=== PATIENT | male | born 1995 | race Caucasian/White ===

== ENCOUNTER 2017-01-17 20:11 | Emergency (ER) | payer MEDICAID, OTHER ==
[~2017-01-17] VITALS: Ht 177.8 cm; Wt 99.0 kg
[2017-01-17 20:40] VITALS: BP 146/88; PULSE 119; RESP 16; TEMP 99; O2SAT 99
--- NOTE | 2017-01-17 20:40 | PD ---
HPI Chief Complaint: Psychiatric Symptoms Time Seen by Provider: 20:37 Travel History International Travel<30 days: No Contact w/Intl Traveler<30days: No History of Present Illness HPI 21-year-old male presents to the emergency Department under Ambriz act by local police. The patient states he got a fight with his girlfriend earlier today. He was working on his trailer when he fell through the floor and got abrasions to his bilateral forearms. He states that his girlfriend got worried that he was going to hurt himself after their fight so she called police. He adamantly denies any suicidal or homicidal ideation. He admits to drinking one beer today. He also states he smokes marijuana and tobacco. He denies any other drug use. Patient denies having any chronic medical problems or take any prescribed medications. He states his tetanus immunization is not up-to-date. Patient denies any medical complaints at this time. PFSH Past Medical History ADHD: Yes Diminished Hearing: No Immunizations Current: Yes Past Surgical History Other Surgery: Yes (SKULL LACERATION AGE 12, SKIN CYST LEFT CLAVICULAR AREA) Social History Alcohol Use: Yes Tobacco Use: Yes (PPD) Substance Use: Yes Allergies-Medications (Allergen,Severity, Reaction): Coded Allergies: No Known Allergies (Verified , 04/11/14) Reported Meds & Prescriptions Reported Meds & Active Scripts Active No Active Prescriptions or Reported Medications Review of Systems Except as stated in HPI: all other systems reviewed are Neg Physical Exam Narrative GENERAL: Well-developed well-nourished male patient, afebrile. SKIN: Warm and dry. Patient has superficial abrasions noted to bilateral forearms. HEAD: Normocephalic. Atraumatic. EYES: No scleral icterus. No injection or drainage. NECK: Supple, trachea midline. No JVD or lymphadenopathy. CARDIOVASCULAR: Regular rate and rhythm without murmurs, gallops, or rubs. RESPIRATORY: Breath sounds equal bilaterally. No accessory muscle use. Lungs sounds are clear to auscultation. GASTROINTESTINAL: Abdomen soft, non-tender, nondistended. MUSCULOSKELETAL: No cyanosis, or edema. BACK: Nontender without obvious deformity. No CVA tenderness. PSYCHIATRIC: No delusional thought processes. No hallucinations. Data Data Last Documented VS Vital Signs Date Time Temp Pulse Resp B/P Pulse Ox O2 Delivery O2 Flow Rate FiO2 2/28/17 21:10 107 20 01/17/17 21:05 98.8 130/79 97 Orders Tetanus/Diphtheria Tox Adult (Tetanus/Di (01/17/17 20:45) Complete Blood Count With Diff (01/17/17 20:36) Comprehensive Metabolic Panel (01/17/17 20:36) Psych Screen (01/17/17 20:36) Drug Screen, Random Urine (01/17/17 20:36) Alcohol (Ethanol) (01/17/17 20:36) Labs Laboratory Tests Test 01/17/17 01/17/17 20:40 20:45 White Blood Count 8.8 TH/MM3 Red Blood Count 5.40 MIL/MM3 Hemoglobin 17.0 GM/DL Hematocrit 48.4 % Mean Corpuscular Volume 89.5 FL Mean Corpuscular Hemoglobin 31.5 PG Mean Corpuscular Hemoglobin 35.2 % Concent Red Cell Distribution Width 13.9 % Platelet Count 248 TH/MM3 Mean Platelet Volume 9.0 FL Neutrophils (%) (Auto) 60.9 % Lymphocytes (%) (Auto) 28.8 % Monocytes (%) (Auto) 8.8 % Eosinophils (%) (Auto) 1.2 % Basophils (%) (Auto) 0.3 % Neutrophils # (Auto) 5.4 TH/MM3 Lymphocytes # (Auto) 2.5 TH/MM3 Monocytes # (Auto) 0.8 TH/MM3 Eosinophils # (Auto) 0.1 TH/MM3 Basophils # (Auto) 0.0 TH/MM3 CBC Comment DIFF FINAL Differential Comment Sodium Level 137 MEQ/L Potassium Level 3.2 MEQ/L Chloride Level 103 MEQ/L Carbon Dioxide Level 21.9 MEQ/L Anion Gap 12 MEQ/L Blood Urea Nitrogen 13 MG/DL Creatinine 1.12 MG/DL Estimat Glomerular Filtration 83 ML/MIN Rate Random Glucose 128 MG/DL Calcium Level 8.7 MG/DL Total Bilirubin 0.9 MG/DL Aspartate Amino Transf 21 U/L (AST/SGOT) Alanine Aminotransferase 37 U/L (ALT/SGPT) Alkaline Phosphatase 84 U/L Total Protein 8.3 GM/DL Albumin 4.8 GM/DL Ethyl Alcohol Level 109 MG/DL Urine Opiates Screen NEG Urine Barbiturates Screen NEG Urine Amphetamines Screen NEG Urine Benzodiazepines Screen POS Urine Cocaine Screen NEG Urine Cannabinoids Screen POS MDM Medical Decision Making Medical Screen Exam Complete: Yes Emergency Medical Condition: Yes Medical Record Reviewed: Yes Differential Diagnosis Depression versus anxiety versus substance abuse versus bipolar disorder Narrative Course 21-year-old male presents to the emergency Department under Ambriz act by local police. He denies any current suicidal or homicidal ideations. CBC, CMP, alcohol level, urine drug screen are ordered and pending. Tetanus immunization is updated. CBC shows no acute abnormality. CMP shows hypokalemia at 3.2. Alcohol level is 109. UDS is positive for benzodiazepines and cannabinoids. Patient is given 40 meq potassium by mouth. Patient is medical cleared for psychiatric screening and disposition. Mental health screening discussed with the patient. Psychiatric screen ordered. Diagnosis Primary Impression: Anxiety Additional Impression: Abrasion forearm Additional Instructions: Patient is medically cleared for psychiatric screening and disposition. Scripts No Active Prescriptions or Reported Meds Condition: Lulu Vang Jan 17, 2017 20:40
[2017-01-17] MEDS ORDERED: TETANUS/DIPHTHERIA TOXOID ADULT 0.5 ML VIAL IM ONE (20:45)
[2017-01-17 21:05] VITALS: BP 130/79; PULSE 107; RESP 20; TEMP 98.8; O2SAT 97
[2017-01-17 21:24] LABS: AUTOMATED NEUTROPHIL # 5.4 TH/MM3 (1.8-7.7); BASOPHIL % 0.3 % (0.0-2.0); EOSINOPHIL # 0.1 TH/MM3 (0-0.4); EOSINOPHIL % 1.2 % (0.0-4.0); HEMATOCRIT 48.4 % (39.0-51.0); HEMO FLAGS DIFF FINAL; LYMPH % 28.8 % (9.0-44.0); LYMPHOCYTE # 2.5 TH/MM3 (1.0-4.8); MEAN CELL VOLUME 89.5 FL (80.0-100.0); MEAN CORPUSCULAR HEMOGLOBIN 31.5 PG (27.0-34.0); MEAN CORPUSCULAR HGB CONC 35.2 % (32.0-36.0); MONO % 8.8 % (0.0-8.0); NEUT % 60.9 % (16.0-70.0); PLATELET COUNT 248 TH/MM3 (150-450); RED CELL DISTRIBUTION WIDTH 13.9 % (11.6-17.2); WHITE BLOOD COUNT 8.8 TH/MM3 (4.0-11.0)
[2017-01-17 21:28] LABS: AMPHETAMINE, URINE NEG (NEG); BARBITURATES, URINE NEG (NEG); COCAINE, URINE NEG (NEG)
[2017-01-17 21:49] LABS: ANION GAP 12 MEQ/L (5-15); AST (GOT) 21 U/L (15-37); BICARBONATE 21.9 MEQ/L (21.0-32.0); BLOOD UREA NITROGEN 13 MG/DL (7-18); CHLORIDE 103 MEQ/L (98-107); GLOMERULAR FILTRATION RATE 83 ML/MIN (>89); POTASSIUM 3.2 MEQ/L (3.5-5.1); SODIUM (NA) 137 MEQ/L (136-145)
[2017-01-17 21:52] LABS: ALKALINE PHOSPHATASE 84 U/L (45-117); ALT (GPT) 37 U/L (12-78); TOTAL BILIRUBIN ADULT 0.9 MG/DL (0.2-1.0)
[2017-01-17] MEDS ORDERED: POTASSIUM CHLORIDE 20 MEQ CONTROLLED RELEASE TAB PO ONE (22:00)
[2017-01-17 23:08] VITALS: BP 151/91; PULSE 180; RESP 16; O2SAT 98
[2017-01-18 02:00] VITALS: BP 144/64; PULSE 79; RESP 18; O2SAT 99
[2017-01-18 06:13] VITALS: BP 137/77; PULSE 90; RESP 19; O2SAT 98
--- NOTE | 2017-01-18 09:47 | PD ---
History of Present Illness Chief Complaint: Psychiatric Symptoms Time Seen by Provider: 09:30 Travel History International Travel<30 Days: No Contact w/Intl Traveler<30days: No Known affected area: No Legal Status Legal Status: Ambriz Act Ambriz Act Signed By: Oz Long Ambriz Act Comment: 2016 @ 1926 History of Present Illness: History of Present Illness 21-year-old male with previous history of ADHD who presents to the emergency Department under Ambriz act by local police. As per the BA report; Responded to a call Yoseph Abreu was suicidal and cutting himself. Yoseph was upset over relationship issues with girlfriend. Yoseph denied trying to hurt himself and refused care ". As per EMR patient was seen in [facility] in 2013 under a BA after he was high and reported suicidal ideation. Current toxicology positive for benzos and cannabinoids. BAL 109. Patient is monitored in J pod. he has presented no behavioral concerns. No suicidality. He is alert , oriented, calm and cooperative male who appears stated age. maintaining basic hygiene. He speech is clear and logical. There is no rico. No hallucinations, no delusions and no paranoia. He denies any suicidal or homicidal ideation, intent or plan. He states that he was involved in an argument with his girlfriend and when she saw the abrasions he had on his arms she called the police. He states that the abrasions are from a work related accident. he denies that they are self inflicted and some of them are on his palms of hands. he is denying any depression or anxiety at this time and states " ilove my life. I am doing well at work and I have no reason to want to ". PFSH Past Medical History Medical History: Denies Significant Hx ADHD: Yes Diminished Hearing: No Immunizations Current: Yes Tetanus Vaccination: Unknown Influenza Vaccination: No Past Surgical History Surgical History: No Previous Surgery Other Surgery: Yes (SKULL LACERATION AGE 12, SKIN CYST LEFT CLAVICULAR AREA) Psychiatric History Psychiatric History Hx Psychiatric Treatment: ADHD Currently not in treatment History of Inpatient Treatment: No Guns or firearms in home: No Social History Single male. Born in [place]. In [place] since age 11 years old. Lives with his mother and Hx Alcohol Use: Yes (social) Hx Tobacco Use: Yes (one pack) Hx Substance Use: Yes Substance Use Type: Marijuana, Nicotine/Cigarettes Hx of Substance Use Treatment: No Allergies-Medications (Allergen,Severity, Reaction): Coded Allergies: No Known Allergies (Verified , 04/11/14) Reported Meds & Prescriptions Reported Meds & Active Scripts Active No Active Prescriptions or Reported Medications Review of Systems Except as stated in HPI: all other systems reviewed are Neg Constitutional: DENIES: Diaphoretic episodes, Fatigue, Fever, Weight gain, Weight loss, Chills, Dizziness, Change in appetite, Night Sweats Endocrine: DENIES: Heat/cold intolerance, Polydipsia, Polyuria, Polyphagia Eyes: DENIES: Blurred vision, Diplopia, Eye inflammation, Eye pain, Vision loss , Photosensitivity, Double Vision Ears, nose, mouth, throat: DENIES: Tinnitus, Hearing loss, Vertigo, Nasal discharge, Oral lesions, Throat pain, Hoarseness, Ear Pain, Running Nose, Epistaxis, Sinus Pain, Toothache, Odynophagia Respiratory: DENIES: Apneas, Cough, Snoring, Wheezing, Hemoptysis, Sputum production, Shortness of breath Cardiovascular: DENIES: Chest pain, Palpitations, Syncope, Dyspnea on Exertion , PND, Lower Extremity Edema, Orthopnea, Claudication Gastrointestinal: DENIES: Abdominal pain, Black stools, Bloody stools, Constipation, Diarrhea, Nausea, Vomiting, Difficulty Swallowing, Anorexia Genitourinary: DENIES: Sexual dysfunction, Urinary frequency, Urinary incontinence, Urgency, Hematuria, Dysuria, Nocturia, Penile Discharge, Testicular Pain, Testicular Swelling Musculoskeletal: DENIES: Joint pain, Muscle aches, Stiffness, Joint Swelling, Back pain, Neck pain Integumentary: DENIES: Abnormal pigmentation, Nail changes, Pruritus, Rash Hematologic/lymphatic: DENIES: Bruising, Lymphadenopathy Immunologic/allergic: DENIES: Eczema, Urticaria Neurologic: DENIES: Abnormal gait, Headache, Localized weakness, Paresthesias, Seizures, Speech Problems, Tremor, Poor Balance Psychiatric: DENIES: Anxiety, Confusion, Mood changes, Depression, Hallucinations, Agitation, Suicidal Ideation, Homicidal Ideation, Delusions Exam Alert: Yes [place]: Person (ox4) Mood: Calm Affect: Euthymic Speech: Clear, Logical Eye Contact: Normal Memory Intact: Comment (no impairment) Hallucinations: Other (negative) Suicidal: Ideation (negative) Homicidal: Ideation (negative) Insight/Judgement Fair. Not impaired MDM Medical Decision Making Medical Record Reviewed: Yes Assessment/Plan 21 year old with previous psychiatric history of ADHD who presents under a BA for suicidal ideation in context of an argument with his girlfriend as well as in context of both alcohol and cannabinoids. At this time the patient is clinically sober and denies any suicidal or homicidal ideation, intent or plan. Does not meet BA criteria. He is requesting discharge Will lift BA and discharge to home. Orders Tetanus/Diphtheria Tox Adult (Tetanus/Di (01/17/17 20:45) Complete Blood Count With Diff (01/17/17 20:36) Comprehensive Metabolic Panel (01/17/17 20:36) Psych Screen (01/17/17 20:36) Drug Screen, Random Urine (01/17/17 20:36) Alcohol (Ethanol) (01/17/17 20:36) Potassium Chloride (Kcl) (01/17/17 22:00) Diet Regular Basic (01/18/17 Breakfast) Results Vital Signs Date Time Temp Pulse Resp B/P Pulse Ox O2 Delivery O2 Flow Rate FiO2 01/18/17 06:13 90 19 137/77 98 Room Air 01/18/17 02:00 79 18 144/64 99 Room Air 01/17/17 23:08 180 16 151/91 98 Room Air 01/17/17 21:10 107 20 01/17/17 21:05 98.8 107 20 130/79 97 01/17/17 20:40 99.0 119 16 146/88 99 Laboratory Tests Test 01/17/17 01/17/17 20:40 20:45 White Blood Count 8.8 Red Blood Count 5.40 Hemoglobin 17.0 Hematocrit 48.4 Mean Corpuscular Volume 89.5 Mean Corpuscular Hemoglobin 31.5 Mean Corpuscular Hemoglobin 35.2 Concent Red Cell Distribution Width 13.9 Platelet Count 248 Mean Platelet Volume 9.0 Neutrophils (%) (Auto) 60.9 Lymphocytes (%) (Auto) 28.8 Monocytes (%) (Auto) 8.8 Eosinophils (%) (Auto) 1.2 Basophils (%) (Auto) 0.3 Neutrophils # (Auto) 5.4 Lymphocytes # (Auto) 2.5 Monocytes # (Auto) 0.8 Eosinophils # (Auto) 0.1 Basophils # (Auto) 0.0 CBC Comment DIFF FINAL Differential Comment Sodium Level 137 Potassium Level 3.2 Chloride Level 103 Carbon Dioxide Level 21.9 Anion Gap 12 Blood Urea Nitrogen 13 Creatinine 1.12 Estimat Glomerular Filtration 83 Rate Random Glucose 128 Calcium Level 8.7 Total Bilirubin 0.9 Aspartate Amino Transf 21 (AST/SGOT) Alanine Aminotransferase 37 (ALT/SGPT) Alkaline Phosphatase 84 Total Protein 8.3 Albumin 4.8 Ethyl Alcohol Level 109 Urine Opiates Screen NEG Urine Barbiturates Screen NEG Urine Amphetamines Screen NEG Urine Benzodiazepines Screen POS Urine Cocaine Screen NEG Urine Cannabinoids Screen POS Diagnosis Primary Impression: Substance induced mood disorder Additional Impression: Abrasion forearm Ruled Out: Anxiety Psychiatrically Cleared: Yes Referrals: [facility] (Out patient) call for appointment Departure Forms: Tests/Procedures Patient Instructions: General Instructions, Benzodiazepine Abuse (ED), Mood Disorders (ED), Abuse of Alcohol (ED), Cannabis Abuse (ED) Additional Instructions: Patient is medically cleared for psychiatric screening and disposition. Prescriptions No Active Prescriptions or Reported Meds Disposition: 01 DISCHARGE HOME Condition: Stable Problem Qualifiers Mer Dodson Jan 18, 2017 09:47
== END 2017-01-18 10:11 | disposition home or self-care (01) ==
LOC: NEPA 20:11 → NEPJ 01-18 10:11
DX: F19.94 Other psychoactive substance use, unspecified with psychoactive substance-induced mood disorder (principal); S50.812A Abrasion of left forearm, initial encounter; S50.811A Abrasion of right forearm, initial encounter; F17.210 Nicotine dependence, cigarettes, uncomplicated; W13.3XXA Fall through floor, initial encounter; Y92.009 Unspecified place in unspecified non-institutional (private) residence as the place of occurrence of the external cause; Y93.E9 Activity, other interior property and clothing maintenance; Z23 Encounter for immunization
CPT/HCPCS: 80053; 80307; 80320; 85025; 90471; 90714